=== PATIENT | male | born 1950 | race Caucasian/White ===

== ENCOUNTER 2023-10-02 07:40 | Observation (INO) | payer MEDICARE, SELFPAY ==
[2023-10-02 08:18] LABS: #Eosinphils 0.1 thou/uL (0.0-0.7); #Monocytes 0.7 thou/uL (0.11-0.59); #Neutrophils 5.3 thou/uL (1.40-6.50); %Basophils 0.3 % (0.0-1.0); %Eosinophils 0.9 % (0.0-10.0); %Lymphocytes 12.6 % (21.0-51.0); %Neutrophils 75.8 % (42.0-75.0); Hematocrit 33.9 % (42.0-52.0); Hemoglobin 11.5 g/dL (14.0-18.0); Mean Corpuscular HGB CONC 33.9 g/dL (32.0-36.0); Mean Corpuscular Hemoglobin 32.7 pg (27.0-31.0); Mean Corpuscular Volume 96.3 fl (78.0-98.0); Mean Platelet Volume 8.7 fL (7.4-10.4); Platelet Count 236 10x3/uL (130-400); RBC Distribution Width 13.1 % (11.5-14.5); Red Blood Cell (RBC) Count 3.52 mill/uL (4.70-6.10)
[2023-10-02] MEDS ORDERED: fentaNYL 50 mcg/mL 1 mL Vial ONE ×3 (08:19→16:21)
[2023-10-02] MEDS ORDERED: CEFAZOLIN 2 GM VIAL ONE (08:20)
[2023-10-02] MEDS ORDERED: Boostrix 0.5 ML (Tdap) VIAL (>/=7 yrs of age) ONE (08:20)
[2023-10-02] MEDS ORDERED: Sodium Chloride 0.9% 100 ML ONE (08:21)
[2023-10-02 08:23] LABS: Actual Bicarbonate (HCO3v) 23.9 mEq/L (22-28); Base Excess -0.1 mEq/L (-2.0 to +3.0); Calcium, Ionized (venous) 1.06 mmol/L (1.16-1.32); Chloride (VBG) 104 mmol/L (98-106); Hematocrit-VBG 36 % (42.0-52.0); Hemoglobin (Hb) 12.4 g/dL (12.6-17.4); Potassium (VBG) 3.83 mmol/L (3.70-5.30); Sodium 138 mmol/L (133-146); pH (venous) 7.431 (7.32-7.43)
[2023-10-02 08:43] LABS: ALT (SGPT) 9 U/L (8-55); AST (SGOT) 14 U/L (5-34); Albumin 4.1 g/dL (3.4-4.8); Alkaline Phosphatase 97 U/L (40-110); Anion Gap 10 mmol/L (10-20); BUN (Urea Nitrogen) 19 mg/dL (8.4-25.7); Bilirubin, Total 0.4 mg/dL (0.2-1.2); Calc. Creatinine Clearance 0 mL/min (70-130); Calcium 8.3 mg/dL (7.8-10.44); Carbon Dioxide 25 mmol/L (23-31); Chloride 106 mmol/L (98-107); Estimated GFR 98; Globulin 2.7 g/dL (2.4-3.5); Glucose 84 mg/dL (83-110); Potassium 3.9 mmol/L (3.5-5.1); Protein, Total 6.8 g/dL (5.8-8.1); Sodium 137 mmol/L (136-145)
[2023-10-02 08:47] LABS: Troponin I Less than 0.010 ng/mL (< 0.028)
[2023-10-02] MEDS ORDERED: Bacitracin 1 PK ONE (10:03)
[2023-10-02] MEDS ORDERED: Ketorolac Tromethamine 30 MG (1 mL) VIAL ONE (11:24)
[2023-10-02] MEDS ORDERED: Albuterol 2.5 MG (3 mL) NEB ONE (16:51)
[2023-10-02] MEDS ORDERED: Dextrose 5% in Water 1,000 ML IV PRN (18:42)
[2023-10-02] MEDS ORDERED: Ondansetron PF 4 MG/2 ML Vial IVP PRN (18:42)
[2023-10-02] MEDS ORDERED: Glucagon 1 MG/ML KIT IM PRN (18:42)
[2023-10-02] MEDS ORDERED: Acetaminophen 325 MG TAB PO PRN (18:42)
[2023-10-02] MEDS ORDERED: traMADol HCl 50 MG TAB PO PRN (18:42)
[2023-10-02] MEDS ORDERED: Ipratropium/Albuterol 3 ML NEB NEB PRN (18:42)
[2023-10-02] MEDS ORDERED: Dextrose 50% Abboject 50 ML SYRINGE SLOW IVP PRN (18:42)
[2023-10-02] MEDS ORDERED: Ondansetron ODT 4 MG TAB PO PRN (18:42)
[2023-10-02] MEDS ORDERED: HYDROcodone/Acetaminophen 5/325 mg Tablet PO PRN (18:48)
[2023-10-02] MEDS ORDERED: Morphine 2 MG/ML VIAL SLOW IVP PRN (19:09)
[2023-10-02] MEDS: Ipratropium/Albuterol 3 ML NEB NEB SCH ×2 (20:00→23:26)
[2023-10-02] MEDS ORDERED: HYDROcodone/Acetaminophen 5/325 mg Tablet ONE (23:14)
[2023-10-02 23:26] VITALS: BMI 21.2
[2023-10-03] MEDS: Ipratropium/Albuterol 3 ML NEB NEB SCH ×6 (02:10→22:32)
[2023-10-03 06:14] LABS: #Eosinphils 0.1 thou/uL (0.0-0.7); #Monocytes 0.4 thou/uL (0.11-0.59); #Neutrophils 1.6 thou/uL (1.40-6.50); %Basophils 0.6 % (0.0-1.0); %Eosinophils 1.8 % (0.0-10.0); %Lymphocytes 36.9 % (21.0-51.0); %Monocytes 12.9 % (0.0-10.0); %Neutrophils 47.5 % (42.0-75.0); Hematocrit 31.3 % (42.0-52.0); Hemoglobin 10.6 g/dL (14.0-18.0); Mean Corpuscular HGB CONC 33.9 g/dL (32.0-36.0); Mean Corpuscular Hemoglobin 32.2 pg (27.0-31.0); Mean Corpuscular Volume 95.1 fl (78.0-98.0); Mean Platelet Volume 8.7 fL (7.4-10.4); Platelet Count 208 10x3/uL (130-400); Red Blood Cell (RBC) Count 3.29 mill/uL (4.70-6.10); White Blood Cell (WBC) Count 3.3 10x3/uL (4.8-10.8)
[2023-10-03 06:38] LABS: ALT (SGPT) 7 U/L (8-55); AST (SGOT) 12 U/L (5-34); Albumin 3.4 g/dL (3.4-4.8); Alkaline Phosphatase 66 U/L (40-110); Anion Gap 9 mmol/L (10-20); BUN (Urea Nitrogen) 18 mg/dL (8.4-25.7); Bilirubin, Total 0.6 mg/dL (0.2-1.2); Calc. Creatinine Clearance 91 mL/min (70-130); Calcium 8.3 mg/dL (7.8-10.44); Carbon Dioxide 25 mmol/L (23-31); Chloride 105 mmol/L (98-107); Estimated GFR 100; Globulin 2.5 g/dL (2.4-3.5); Glucose 87 mg/dL (83-110); Potassium 3.2 mmol/L (3.5-5.1); Protein, Total 5.9 g/dL (5.8-8.1); Sodium 136 mmol/L (136-145)
[2023-10-03] MEDS ORDERED: Ibuprofen 600 MG TAB PO PRN (07:26)
[2023-10-03] MEDS ORDERED: Acetaminophen 500 MG TAB PO SCH (07:30)
[2023-10-03] MEDS ORDERED: traMADol HCl 50 MG TAB PO PRN (07:33)
[2023-10-03] MEDS: Polyethylene Glycol 3350 17 GM Packet PO SCH (10:16)
[2023-10-03] MEDS ORDERED: Bacitracin Zinc Ointment 30 gm TUBE TOP SCH (10:45)
[2023-10-03] MEDS ORDERED: Potassium Chloride 20 MEQ TAB PO SCH (10:45)
[2023-10-03] MEDS ORDERED: Acetaminophen 500 MG TAB PO PRN (14:00)
[2023-10-03] MEDS ORDERED: Enoxaparin 40 MG (0.4 mL) SYRINGE SC SCH (21:00)
[2023-10-04] MEDS: Ipratropium/Albuterol 3 ML NEB NEB SCH ×4 (02:42→14:56)
[2023-10-04 04:53] LABS: #Monocytes 0.7 thou/uL (0.11-0.59); %Basophils 0.2 % (0.0-1.0); %Lymphocytes 32.6 % (21.0-51.0); Hematocrit 31.3 % (42.0-52.0); Hemoglobin 10.6 g/dL (14.0-18.0); Mean Corpuscular HGB CONC 33.9 g/dL (32.0-36.0); Mean Corpuscular Hemoglobin 32.3 pg (27.0-31.0); Mean Corpuscular Volume 95.4 fl (78.0-98.0); Mean Platelet Volume 8.7 fL (7.4-10.4); Platelet Count 237 10x3/uL (130-400); RBC Distribution Width 13.2 % (11.5-14.5); Red Blood Cell (RBC) Count 3.28 mill/uL (4.70-6.10); White Blood Cell (WBC) Count 4.1 10x3/uL (4.8-10.8)
[2023-10-04 05:27] LABS: Anion Gap 9 mmol/L (10-20); BUN (Urea Nitrogen) 14 mg/dL (8.4-25.7); Calc. Creatinine Clearance 87 mL/min (70-130); Calcium 8.5 mg/dL (7.8-10.44); Carbon Dioxide 27 mmol/L (23-31); Chloride 104 mmol/L (98-107); Estimated GFR 99; Glucose 102 mg/dL (83-110); Potassium 3.7 mmol/L (3.5-5.1); Sodium 136 mmol/L (136-145)
[2023-10-04] MEDS: Polyethylene Glycol 3350 17 GM Packet PO SCH (09:00)
[2023-10-04] MEDS ORDERED: Bacitracin Zinc Ointment 30 gm TUBE TOP SCH (09:00)
[2023-10-04 15:26] VITALS: BP 119/77; TEMP 98.4
[2023-10-06] MEDS ORDERED: FLU VACC QS2023(65UP)/MF59C/PF 60 MCG/0.5 ML SYRINGE IM ONE (02:30)
== END 2023-10-04 17:12 | disposition home or self-care (01) ==
LOC: ERS 07:40 → ERHOLD 18:42 → SURG A 20:59
PROVIDERS: ADMIT Specialist; ATTEND Specialist
DX: T23.202A Burn of second degree of left hand, unspecified site, initial encounter (principal); T24.212A Burn of second degree of left thigh, initial encounter; F15.90 Other stimulant use, unspecified, uncomplicated; J44.9 Chronic obstructive pulmonary disease, unspecified; F14.90 Cocaine use, unspecified, uncomplicated; F17.210 Nicotine dependence, cigarettes, uncomplicated; F41.9 Anxiety disorder, unspecified; X00.0XXA Exposure to flames in uncontrolled fire in building or structure, initial encounter
CPT/HCPCS: 16000; 71045; 80048; 80053 ×2; 82805; 83605; 84484; 85025 ×3; 90471; 90715; 93005; 94640 ×3; 96365; 96375; 96376; 97139 ×2; 99285; G0378 ×4; J3010; 36415; G0390; J1885; J3490; J7611; J7620